=== PATIENT | female | born 1930 | race Caucasian/White ===

== ENCOUNTER 2018-10-11 11:05 | Emergency (ER) | payer OTHER, MEDICAID ==
[~2018-10-11] VITALS: Ht 154.9 cm; Wt 80.0 kg
[~2018-10-11 11:05] MED LIST: AMIT25TA9 PO; AMLO5TAB88 PO; PIOG30TA27 PO; ROSU10TA PO
[2018-10-11 11:20] VITALS: BP 134/55
[2018-10-11] MEDS ORDERED: ACETAMINOPHEN 325MG TABLET PO ONE (12:45)
== END 2018-10-11 16:12 | disposition home or self-care (01) ==
LOC: ER 11:05
DX: S52.601A Unspecified fracture of lower end of right ulna, initial encounter for closed fracture (principal); E11.9 Type 2 diabetes mellitus without complications; Z98.890 Other specified postprocedural states; Z79.899 Other long term (current) drug therapy; W10.8XXA Fall (on) (from) other stairs and steps, initial encounter; Y93.89 Activity, other specified; Y92.89 Other specified places as the place of occurrence of the external cause; Y99.8 Other external cause status
CPT/HCPCS: 29125; 73130; 99283